=== PATIENT | male | born 1990 ===

== ENCOUNTER 2018-05-09 19:23 | Emergency (ER) | payer OTHER ==
[~2018-05-09] VITALS: Ht 172.7 cm; Wt 72.6 kg
--- NOTE | 2018-05-09 19:24 | NUR ---
PT BIB [facility], C/C ETOH. PT A/OX4, ABLE TO FOLLOW COMMANDS. VSS. PER PARAMEDICS, BS 117 AND + N/V. PT DENIES PAIN, C/P, SOB, DIZZINESS, HEADACHE AT THIS TIME.
--- NOTE | 2018-05-09 19:40 | NUR ---
PT SELF-AMBULATED TO RESTROOM W/O DIFFICULTY.
--- NOTE | 2018-05-09 20:02 | NUR ---
PT SMELLS OF ETOH W/ SLOW SLURRED SPEECH. PER PARAMEDICS, PT WAS EARLIER TRANSPORTED TO [facility] FOR ETOH AND THIS TIME REQUESTED TO BE TRANSPORTED TO A DIFFERENT HOSPITAL.
--- NOTE | 2018-05-09 20:07 | NUR ---
PT PROVIDED W/ FOOD AND WATER.
[2018-05-09 21:03] VITALS: BP 116/71
--- NOTE | 2018-05-09 21:03 | NUR ---
Patient discharged to home in stable conditon. Written and verbal after care instructions given. Patient verbalizes understanding of instructions. PT ABLE TO SELF-AMBULATE W/O DIFFICULTY. ALL BELONGINGS W/ PT.
== END 2018-05-09 21:04 | disposition home or self-care (01) ==
LOC: ER 19:25
DX: F10.129 Alcohol abuse with intoxication, unspecified (principal); Z59.0 Homelessness
CPT/HCPCS: A4663